=== PATIENT | male | born 2000 | race Hispanic/Latino ===

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

== ENCOUNTER 2021-03-14 13:46 | Emergency (ER) | payer SELFPAY ==
[2021-03-14] MEDS ORDERED: DEXAMETHASONE SOD PHOSPHATE 10MG/ML 1ML VIAL ONE (14:24)
[2021-03-14] MEDS ORDERED: CLINDAMYCIN HCL 150 MG CAP ONE (14:24)
[2021-03-14] MEDS ORDERED: ACETAMINOPHEN-CODEINE 300/30MG TAB ONE (14:24)
== END 2021-03-14 15:10 | disposition home or self-care (01) ==
LOC: EDH 13:46
DX: H60.513 Acute actinic otitis externa, bilateral (principal); Z88.1 Allergy status to other antibiotic agents
CPT/HCPCS: 96372; 99283; J1100